=== PATIENT | female | born 2000 | race Hispanic/Latino ===

== ENCOUNTER 2020-08-16 22:17 | Inpatient (IN) | payer OTHER ==
[~2020-08-16] VITALS: Ht 152.4 cm; Wt 65.8 kg
[2020-08-16 23:35] VITALS: BP 111/60
[2020-08-16 23:40] LABS: HEMATOCRIT 33.6 % (36-48); MEAN CORPUSCULAR HEMOGLOBIN 27.1 pg (27.0-33.0); MEAN CORPUSCULAR HGB CONC 32.7 g/dL (32.0-36.0); MEAN CORPUSCULAR VOLUME 82.8 fL (79-99); RED BLOOD CELL COUNT(AUTO) 4.06 MIL/uL (4.00-5.50); RED CELL DISTRIBUTION WIDTH 13.2 % (11.0-15.5)
[2020-08-16 23:41] LABS: APPEARANCE,URINE Clear (CLEAR); BILIRUBIN,URINE Negative (NEGATIVE); COLOR,URINE Yellow (YELLOW); GLUCOSE, URINE (UA) TRACE mg/dL (NEGATIVE); KETONES,URINE Trace mg/dL (NEGATIVE); LEUKOCYTE ESTERASE ,URINE Negative (NEGATIVE); NITRATE,URINE Negative (NEGATIVE); OCCULT BLOOD,URINE Negative (NEGATIVE); PROTEIN,URINE Negative (NEGATIVE)
[2020-08-16 23:50] LABS: AMPHET/METH SCREEN,URINE NEGATIVE (NEGATIVE); BARBITURATE SCREEN, URINE NEGATIVE (NEGATIVE); BENZODIAZEPINES SCREEN,URINE NEGATIVE (NEGATIVE); CANNABINOID SCREEN,URINE NEGATIVE (NEGATIVE); COCAINE SCREEN,URINE NEGATIVE (NEGATIVE); OPIATE SCREEN,URINE NEGATIVE (NEGATIVE); PHENCYCLIDINE SCREEN,URINE NEGATIVE (NEGATIVE)
[2020-08-17] MEDS ORDERED: NALOXONE HCL 0.4 MG/1 ML ML IV PRN
[2020-08-17] MEDS ORDERED: EPHEDRINE SULFATE 50 MG/ML AMPULE IVP PRN
[2020-08-17] MEDS ORDERED: LACTATED RINGERS 500 ML 500 ML IV PRN
[2020-08-17] MEDS ORDERED: MEPERIDINE-PF 50 MG/ML SYG IVP PRN
[2020-08-17] MEDS ORDERED: PROMETHAZINE HCL 25 MG/ML 1ML AMPULE IM PRN
[2020-08-17] MEDS ORDERED: OXYTOCIN-LR 20 UNITS/1000 ML 1,000 ML IV SCH
[2020-08-17] MEDS ORDERED: ROPIVACAINE 0.2% 100ML VIAL 100 ML EP SCH
[2020-08-17] MEDS ORDERED: DINOPROSTONE 10 MG VAGINAL SUPP ONE (00:11)
[2020-08-17] MEDS ORDERED: DINOPROSTONE 10 MG VAGINAL SUPP VG SCH ×2 (03:00→19:00)
[2020-08-17] MEDS: LACTATED RINGERS 1000ML 1,000 ML IV PRN ×2 (05:02→13:10)
[2020-08-17 08:46] LABS: RAPID PLASMA REAGIN NONREACTIVE (NONREACTIVE)
[2020-08-19 05:11] LABS: HEPATITIS Bs ANTIGEN SCREEN P Negative (Negative)
== END 2020-08-17 19:54 | disposition home or self-care (01) | DRG 833 ==
LOC: EDH 22:17 → LDH 22:18 → OBSVTOIN 22:18
PROVIDERS: ADMIT Obstetrics & Gynecology; ATTEND Obstetrics & Gynecology
PROC: 3E0P7VZ Introduction of Hormone into Female Reproductive, Via Natural or Artificial Opening (ICD-10-PCS; principal; 2020-08-17)
DX: O26.893 Other specified pregnancy related conditions, third trimester (principal); Z3A.39 39 weeks gestation of pregnancy
CPT/HCPCS: 36415; 76819; 80305; 81003; 85027; 86592; 86701; 86850; 86900; 86901; 87340; 87390; 96360; 96361; G0378; J7120